=== PATIENT | female | born 1995 | race Caucasian/White ===

== ENCOUNTER → 2018-10-22 | Outpatient (CLI) | payer OTHER | END | disposition home or self-care (01) | LOC: M.RAD 09:45 → M.MRI 11:30 | DX: M25.552 Pain in left hip (principal); S73.192A Other sprain of left hip, initial encounter; M21.852 Other specified acquired deformities of left thigh; X58.XXXA Exposure to other specified factors, initial encounter; Y93.89 Activity, other specified; Y92.89 Other specified places as the place of occurrence of the external cause; Y99.8 Other external cause status ==